=== PATIENT | female | born 1980 | race Caucasian/White ===

== ENCOUNTER 2018-03-08 14:11 | Emergency (ER) | payer OTHER ==
[~2018-03-08] VITALS: Ht 170.2 cm; Wt 81.6 kg
[~2018-03-08 14:11] MED LIST: LORA-434 PO; NAPR-683 PO; ONDA4TAB7 PO; OXYC1TAB15 PO; Oxycodone Hcl/Acetaminophen PO; TAMS0.4C97 PO
[2018-03-08 14:40] LABS: BILIRUBIN,URINE NEGATIVE (NEG); CLARITY,URINE CLEAR; COLOR,URINE YELLOW; NITRITE,URINE NEGATIVE (NEG); PH,URINE 5.5; PROTEIN,URINE NEGATIVE (NEG-TRACE); UROBILINOGEN,URINE 0.2 mg/dL (0.2 mg/dL)
[2018-03-08 14:46] LABS: BARBITURATES NEG (NEG); BENZODIAZEPINES POS (NEG); CANNABINOIDS NEG (NEG); COCAINE NEG (NEG); METHADONE NEG (NEG); OPIATES NEG (NEG); PHENCYCLIDINE NEG (NEG)
[2018-03-08 14:47] LABS: BACTERIA,URINE FEW /HPF (0-FEW); RBC,URINE 0 /HPF (0-2); SQUAMOUS EPITHELIAL CELL,UR MOD /LPF
[2018-03-08 14:51] LABS: AMPHETAMINE/METHAMPHETAMINE NEG (NEG)
--- NOTE | 2018-03-08 15:13 | EKG ---
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
[2018-03-08] MEDS ORDERED: HYDROcodone/APAP 5/325MG 1 TAB TABLET PO ONE (15:15)
[2018-03-08] MEDS ORDERED: CYCLOBENZAPRINE 10 MG TABLET. PO ONE (15:15)
--- NOTE | 2018-03-08 15:27 | PHYS DOC ---
Past Medical History Past Medical History: Kidney Stone, Pancreatitis Past Surgical History: Appendectomy, Tubal ligation, Other Additional Past Surgical Histo: ACL surgery, kidney stones; right scapula Alcohol Use: Occasionally Drug Use: None Adult General Chief Complaint Chief Complaint: DIZZY/LIGHT HEADED HPI HPI Patient is a 37 year old female who presents with was in the shower today and became dizzy and felt a sharp. She states she did not lose consciousness. She states she now has head pain, back pain. Patient denies hitting her head. Review of Systems Review of Systems Constitutional: Denies fever or chills [] Eyes: Denies change in visual acuity, redness, or eye pain [] HENT: Denies nasal congestion or sore throat [] Respiratory: Denies cough or shortness of breath [] Cardiovascular: No additional information not addressed in HPI [] GI: Denies abdominal pain, nausea, vomiting, bloody stools or diarrhea [] : Denies dysuria or hematuria [] Musculoskeletal: Lumbar back pain or joint pain [] Integument: Denies rash or skin lesions [] Neurologic: headache, eyes focal weakness or sensory changes [] All other systems were reviewed and found to be within normal limits, except as documented in this note. Current Medications Current Medications Current Medications Medications (Trade) Dose Ordered Sig/Sindi Start Time Stop Time Status Last Admin Dose Admin Acetaminophen/ Hydrocodone Bitart (Lortab 5/325) 1 tab 1X ONCE 03/08/18 15:15 03/08/18 15:16 DC 03/08/18 15:35 1 TAB Cyclobenzaprine HCl (Flexeril) 10 mg 1X ONCE 03/08/18 15:15 03/08/18 15:16 DC 03/08/18 15:35 10 MG Allergies Allergies Allergies Coded Allergies Type Severity Reaction Last Updated Verified No Known Drug Allergies 04/17/13 No Physical Exam Physical Exam Constitutional: Well developed, well nourished, no acute distress, non-toxic appearance. [] HENT: Normocephalic, atraumatic, bilateral external ears normal, oropharynx moist, no oral exudates, nose normal. [] Eyes: PERRLA, EOMI, conjunctiva normal, no discharge. [] Neck: Normal range of motion, no tenderness, supple, no stridor. [] Cardiovascular:Heart rate regular rhythm, no murmur [] Lungs & Thorax: Bilateral breath sounds clear to auscultation [] Abdomen: Bowel sounds normal, soft, no tenderness, no masses, no pulsatile masses. [] Skin: Warm, dry, no erythema, no rash. [] Back: Lumbar tenderness, no CVA tenderness. [] Extremities: No tenderness, no cyanosis, no clubbing, ROM intact, no edema. [] Neurologic: Alert and oriented X 3, normal motor function, normal sensory function, no focal deficits noted. [] Psychologic: Affect normal, judgement normal, mood normal. [] Current Patient Data Vital Signs Vital Signs Date Time Temp Pulse Resp B/P (MAP) Pulse Ox O2 Delivery O2 Flow Rate FiO2 03/08/18 15:36 77 16 99 03/08/18 14:31 97.0 157/84 (108) Room Air 97.0 Lab Values Laboratory Tests Test 03/08/18 14:10 03/08/18 14:30 03/08/18 14:31 Urine Collection Type Unknown Urine Color Yellow Urine Clarity Clear Urine pH 5.5 Urine Specific [place] >=1.030 Urine Protein Negative mg/dL (NEG-TRACE) Urine Glucose (UA) Negative mg/dL (NEG) Urine Ketones (Stick) Negative mg/dL (NEG) Urine Blood Negative (NEG) Urine Nitrite Negative (NEG) Urine Bilirubin Negative (NEG) Urine Urobilinogen Dipstick 0.2 mg/dL (0.2 mg/dL) Urine Leukocyte Esterase Negative (NEG) Urine RBC 0 /HPF (0-2) Urine WBC 5-10 /HPF (0-4) Urine Squamous Epithelial Cells Mod /LPF Urine Bacteria Few /HPF (0-FEW) Urine Mucus Marked /LPF Urine Opiates Screen Neg (NEG) Urine Methadone Screen Neg (NEG) Urine Barbiturates Neg (NEG) Urine Phencyclidine Screen Neg (NEG) Urine Amphetamine/Methamphetamine Neg (NEG) Urine Benzodiazepines Screen Pos (NEG) Urine Cocaine Screen Neg (NEG) Urine Cannabinoids Screen Neg (NEG) Urine Ethyl Alcohol Neg (NEG) White Blood Count 4.9 x10^3/uL (4.0-11.0) Red Blood Count 5.02 x10^6/uL (3.50-5.40) Hemoglobin 14.6 g/dL (12.0-15.5) Hematocrit 42.7 % (36.0-47.0) Mean Corpuscular Volume 85 fL (79-100) Mean Corpuscular Hemoglobin 29 pg (25-35) Mean Corpuscular Hemoglobin Concent 34 g/dL (31-37) Red Cell Distribution Width 18.3 % (11.5-14.5) H Platelet Count 313 x10^3/uL (140-400) Neutrophils (%) (Auto) 49 % (31-73) Lymphocytes (%) (Auto) 36 % (24-48) Monocytes (%) (Auto) 10 % (0-9) H Eosinophils (%) (Auto) 4 % (0-3) H Basophils (%) (Auto) 1 % (0-3) Neutrophils # (Auto) 2.4 x10^3uL (1.8-7.7) Lymphocytes # (Auto) 1.8 x10^3/uL (1.0-4.8) Monocytes # (Auto) 0.5 x10^3/uL (0.0-1.1) Eosinophils # (Auto) 0.2 x10^3/uL (0.0-0.7) Basophils # (Auto) 0.0 x10^3/uL (0.0-0.2) Sodium Level 141 mmol/L (136-145) Potassium Level 3.7 mmol/L (3.5-5.1) Chloride Level 103 mmol/L (98-107) Carbon Dioxide Level 28 mmol/L (21-32) Anion Gap 10 (6-14) Blood Urea Nitrogen 18 mg/dL (7-20) Creatinine 0.8 mg/dL (0.6-1.0) Estimated GFR (Cockcroft-Gault) 79.9 BUN/Creatinine Ratio 23 (6-20) H Glucose Level 105 mg/dL (70-99) H Calcium Level 9.9 mg/dL (8.5-10.1) Total Bilirubin 0.2 mg/dL (0.2-1.0) Aspartate Amino Transferase (AST) 19 U/L (15-37) Alanine Aminotransferase (ALT) 39 U/L (14-59) Alkaline Phosphatase 93 U/L (46-116) Troponin I Quantitative < 0.017 ng/mL (0.000-0.055) Total Protein 8.9 g/dL (6.4-8.2) H Albumin 4.2 g/dL (3.4-5.0) Albumin/Globulin Ratio 0.9 (1.0-1.7) L Ethyl Alcohol Level < 10 mg/dL (0-10) POC Urine HCG, Qualitative Hcg negative (Negative) Laboratory Tests 03/08/18 14:30 Laboratory Tests 03/08/18 14:30 EKG EKG Sinus rhythm and no STEMI Interpretation Time: [address] Arellano Radiology/Procedures Radiology/Procedures [] Impressions: [facility] [address] [place] [address] IMAGING REPORT Signed PATIENT: PEGGY GASTON ACCOUNT: [id number] : 1980 LOCATION: ER AGE: 37 SEX: F EXAM STATUS: REG ER ORD. PHYSICIAN: CAMMY ARNDT APRN REASON: fall PROCEDURE: CT HEAD AND CERVICAL SPINE WO PQRS Compliance statement: One or more of the following individualized dose reduction techniques were utilized for this examination: 1. Automated exposure control. 2. Adjustment of the mA and/or kV according to patient size. 3. Use of iterative reconstruction technique. Indication:FALL IN SHOWER PAIN TO HEAD AND BACK PREV HEAD SENT NO CONTRAST TECHNIQUE: CT head without IV contrast COMPARISON:04/17/2013 FINDINGS: No pathologic extra-axial or intra-axial fluid collection. The ventricles and basal cisterns are within normal limits. No acute intracranial bleed. No focal loss of riddle-white differentiation. No large scalp hematoma. Visualized orbits within normal limits. No acute calvarial fracture. IMPRESSION: 1. No acute intracranial bleed or calvarial fracture. Indication:FALL IN SHOWER PAIN TO HEAD AND BACK PREV HEAD SENT NO CONTRAST TECHNIQUE: CT of the cervical spine without IV contrast with multiplanar reformats. COMPARISON:None FINDINGS: The cervical spine is in normal anatomic alignment. Atlantoaxial joint or is preserved. No compression deformity. Facet joints are in normal anatomic alignment. No acute fractures. Noncontrast appearance of the neck soft tissue is within normal limits. IMPRESSION: No acute cervical spine fracture. Electronically signed by: Jourdan Borden DO (03/08/2018 3:22 PM) [id number] DICTATED and SIGNED BY: JOURDAN BORDEN DO DATE: 03/08/18 1518 [facility] [address] [place] [address] IMAGING REPORT Signed PATIENT: PEGGY GASTON ACCOUNT: [id number] : 1980 LOCATION: ER AGE: 37 SEX: F EXAM STATUS: REG ER ORD. PHYSICIAN: CAMMY ARNDT APRN REASON: fall PROCEDURE: CT THORACIC SPINE WO CONTRAST CT study of the thoracic spine without contrast Clinical indications: Fall in shower with back pain and neck pain. TECHNIQUE: Noncontrast helical CT scanning of the thoracic spine was performed. Multiplanar 2-D reconstructions were generated. PQRS compliance Statement One or more of the following individualized dose reduction techniques were utilized for this study: 1. Automated exposure control 2. Adjustment of the mA and/or kV according to patient size 3. Use of iterative reconstruction technique FINDINGS: No compression fracture or radiolucent fracture line is evident. No discitis or osteolytic process is. No prominent focal disc protrusion is evident on this nonmyelographic study and no tight spinal canal stenosis is seen. IMPRESSION: No acute fracture is evident. Electronically signed by: Lisa Christianson MD (03/08/2018 3:45 PM) [id number] DICTATED and SIGNED BY: LISA CHRISTIANSON MD DATE: 03/08/18 1538 [facility] [address] [place] [address] IMAGING REPORT Signed PATIENT: PEGGY GASTON ACCOUNT: [id number] : 1980 LOCATION: ER AGE: 37 SEX: F EXAM STATUS: REG ER ORD. PHYSICIAN: CAMMY ARNDT APRN REASON: fall PROCEDURE: CT LUMBAR SPINE WO CONTRAST CT LUMBAR SPINE WO CONTRAST Indication: FALL IN THE SHOWER, BACK PAIN Technique: Noncontrast CT imaging was performed of the lumbar spine, multiplanar reconstruction images submitted. One or more of the following individualized dose reduction techniques were utilized for this examination: 1. Automated exposure control 2. Adjustment of the mA and/or kV according to patient size 3. Use of iterative reconstruction technique. Comparison: None Findings: Lumbar vertebral body stature is maintained. There is negligible anterior spondylolisthesis L4-5. Intervertebral disc spaces are mostly maintained, mild degenerative disc disease greater posteriorly at L5-S1. No acute lumbar spine fracture is identified. There is multilevel lumbar facet degenerative change. There is a partially fat containing mass with associated cystic component of the right adnexal region about 6.6 cm AP by 3.9 cm transverse which is not fully included. There are small bilateral renal calculi, ureters not fully included. IMPRESSION: 1. No acute lumbar spine fracture is identified. 2. There is again partially fat containing mass of the right adnexal region which is not fully included, probable dermoid/teratoma as seen on previous 2017 CT abdomen pelvis exam. 3. There are small bilateral renal calculi. Ureters are not fully included. Electronically signed by: Toshia Wheat MD (03/08/2018 3:41 PM) [facility] DICTATED and SIGNED BY: TOSHIA WHEAT MD DATE: 03/08/18 1535 Course & Med Decision Making Course & Med Decision Making Patient is a 37 year old female who presents with was in the shower today and became dizzy and felt a sharp. She states she did not lose consciousness. She states she now has head pain, back pain. Patient denies hitting her head. Alert and oriented. Speaks in full clear sentences. Moves all extremities equally. Patient has no focal weaknesses. Denies any chest pain, shortness of air, dizziness, visual changes, numbness or tingling, nausea, vomiting. Abdomen is soft and non-tender, and without abrasions, bruising, masses. PERRLA. Neurologically intact. Range of motion intact in neck. There is tenderness with palpation to thoracic and lumbar spine. There is no bruising or deformities or abrasions seen on patient's back, torso, extremities. Patient head and face is without deformities, lacerations, abrasions, tenderness, masses, bruises. States throughout the last couple days she has had a couple episodes of dizziness and doesn't matter what she is doing at the whether she sitting, walking or standing. CT scans show no acute findings. EKG normal, blood work unremarkable. Patient is disscharged home and to follow up with primary care physician. Patient should return for increased dizziness, syncope, fever, vomiting, chest pain or soa. Dragon Disclaimer Dragon Disclaimer This electronic medical record was generated, in whole or in part, using a voice recognition dictation system. Departure Departure Impression: Primary Impression: Fall Additional Impression: Musculoskeletal back pain Disposition: HOME, SELF-CARE Condition: STABLE Referrals: NO PCP (PCP) Patient Instructions: Back Pain, Adult, Dizziness, Fall Prevention and Home Safety, Musculoskeletal Pain Additional Instructions: Call your primary care physician tomorrow for follow up care. Take medications as prescribed. Scripts Orphenadrine Citrate (ORPHENADRINE CITRATE) 100 Mg Tablet.er 1 TAB PO BID, #10 TAB Prov: CAMMY ARNDT APRN 03/08/18 Hydrocodone/Apap 5-325 (NORCO 5-325 TABLET) 1 Each Tablet 1 TAB PO PRN Q6HRS PRN for PAIN, #6 TAB 0 Refills Prov: CAMMY ARNDT APRN 03/08/18 Problem Qualifiers Primary Impression: Fall Encounter type: initial encounter Qualified Codes: W19.XXXA - Unspecified fall, initial encounter CAMMY ARNDT DRAFTER [employer] Mar 08, 2018 15:27
[2018-03-08 15:44] LABS: BASO % 1 % (0-3); EOS # 0.2 x10^3/uL (0.0-0.7); EOS % 4 % (0-3); HEMATOCRIT 42.7 % (36.0-47.0); HEMOGLOBIN 14.6 g/dL (12.0-15.5); LYMPH # 1.8 x10^3/uL (1.0-4.8); LYMPH % 36 % (24-48); MEAN CORPUSCULAR HEMOGLOBIN 29 pg (25-35); MEAN CORPUSCULAR HGB CONC 34 g/dL (31-37); MEAN CORPUSCULAR VOLUME 85 fL (79-100); MONO # 0.5 x10^3/uL (0.0-1.1); MONO % 10 % (0-9); NEUT # 2.4 x10^3uL (1.8-7.7); NEUT % 49 % (31-73); PLATELET COUNT 313 x10^3/uL (140-400); RED BLOOD COUNT 5.02 x10^6/uL (3.50-5.40); RED CELL DISTRIBUTION WIDTH 18.3 % (11.5-14.5); WHITE BLOOD COUNT 4.9 x10^3/uL (4.0-11.0)
--- NOTE | 2018-03-08 15:46 | RAD ---
CT LUMBAR SPINE WO CONTRAST Indication: FALL IN THE SHOWER, BACK PAIN Technique: Noncontrast CT imaging was performed of the lumbar spine, multiplanar reconstruction images submitted. One or more of the following individualized dose reduction techniques were utilized for this examination: 1. Automated exposure control 2. Adjustment of the mA and/or kV according to patient size 3. Use of iterative reconstruction technique. Comparison: None Findings: Lumbar vertebral body stature is maintained. There is negligible anterior spondylolisthesis L4-5. Intervertebral disc spaces are mostly maintained, mild degenerative disc disease greater posteriorly at L5-S1. No acute lumbar spine fracture is identified. There is multilevel lumbar facet degenerative change. There is a partially fat containing mass with associated cystic component of the right adnexal region about 6.6 cm AP by 3.9 cm transverse which is not fully included. There are small bilateral renal calculi, ureters not fully included. IMPRESSION: 1. No acute lumbar spine fracture is identified. 2. There is again partially fat containing mass of the right adnexal region which is not fully included, probable dermoid/teratoma as seen on previous 2017 CT abdomen pelvis exam. 3. There are small bilateral renal calculi. Ureters are not fully included. Electronically signed by: Julio Lockhart MD (03/08/2018 3:41 PM) [facility]
--- NOTE | 2018-03-08 15:50 | RAD ---
CT study of the thoracic spine without contrast Clinical indications: Fall in shower with back pain and neck pain. TECHNIQUE: Noncontrast helical CT scanning of the thoracic spine was performed. Multiplanar 2-D reconstructions were generated. PQRS compliance Statement One or more of the following individualized dose reduction techniques were utilized for this study: 1. Automated exposure control 2. Adjustment of the mA and/or kV according to patient size 3. Use of iterative reconstruction technique FINDINGS: No compression fracture or radiolucent fracture line is evident. No discitis or osteolytic process is. No prominent focal disc protrusion is evident on this nonmyelographic study and no tight spinal canal stenosis is seen. IMPRESSION: No acute fracture is evident. Electronically signed by: Santana Christianson MD (03/08/2018 3:45 PM) [facility]
[2018-03-08 15:53] LABS: CALCIUM 9.9 mg/dL (8.5-10.1); CREATININE 0.8 mg/dL (0.6-1.0); GFR 79.9; POTASSIUM 3.7 mmol/L (3.5-5.1)
[2018-03-08 15:59] LABS: ALBUMIN 4.2 g/dL (3.4-5.0); ALBUMIN/GLOBULIN RATIO 0.9 (1.0-1.7); TOTAL BILIRUBIN 0.2 mg/dL (0.2-1.0); TOTAL PROTEIN 8.9 g/dL (6.4-8.2)
[2018-03-08 16:01] VITALS: BP 119/86
[2018-03-08] MEDS ORDERED: HYDR-3164 PO (16:15)
[2018-03-08] MEDS ORDERED: ORPH100T PO (16:15)
== END 2018-03-08 16:25 | disposition home or self-care (01) ==
LOC: ER 14:11
DX: M54.5 Low back pain (principal); R51 Headache; R42 Dizziness and giddiness; N20.0 Calculus of kidney; M43.16 Spondylolisthesis, lumbar region; M51.37 Other intervertebral disc degeneration, lumbosacral region; Z87.440 Personal history of urinary (tract) infections; Z90.89 Acquired absence of other organs; Z98.51 Tubal ligation status; W18.30XA Fall on same level, unspecified, initial encounter; Y93.E1 Activity, personal bathing and showering; Y92.89 Other specified places as the place of occurrence of the external cause; Y99.8 Other external cause status
CPT/HCPCS: 36415; 70450; 72125; 72128; 72131; 80053; 80307; 81001; 81025; 84484; 85025; 87086; 93005; 99284; G0480

== ENCOUNTER 2018-04-24 20:42 | Emergency (ER) | payer OTHER ==
[~2018-04-24] VITALS: Ht 167.6 cm; Wt 88.5 kg
[~2018-04-24 20:42] MED LIST changes: +HYDR-3164 PO; +ORPH100T PO
[2018-04-24 22:17] LABS: BILIRUBIN,URINE NEGATIVE (NEG); CLARITY,URINE CLEAR; COLOR,URINE YELLOW; NITRITE,URINE NEGATIVE (NEG); PROTEIN,URINE NEGATIVE (NEG-TRACE); UROBILINOGEN,URINE 0.2 mg/dL (0.2 mg/dL)
[2018-04-24 22:24] LABS: BASO # 0.1 x10^3/uL (0.0-0.2); BASO % 1 % (0-3); EOS # 0.4 x10^3/uL (0.0-0.7); EOS % 7 % (0-3); HEMATOCRIT 38.3 % (36.0-47.0); HEMOGLOBIN 12.8 g/dL (12.0-15.5); LYMPH # 2.1 x10^3/uL (1.0-4.8); LYMPH % 35 % (24-48); MEAN CORPUSCULAR HEMOGLOBIN 29 pg (25-35); MEAN CORPUSCULAR HGB CONC 33 g/dL (31-37); MEAN CORPUSCULAR VOLUME 86 fL (79-100); MONO # 0.4 x10^3/uL (0.0-1.1); MONO % 7 % (0-9); NEUT # 2.9 x10^3uL (1.8-7.7); NEUT % 50 % (31-73); PLATELET COUNT 270 x10^3/uL (140-400); RED BLOOD COUNT 4.47 x10^6/uL (3.50-5.40); RED CELL DISTRIBUTION WIDTH 17.7 % (11.5-14.5); WHITE BLOOD COUNT 5.9 x10^3/uL (4.0-11.0)
[2018-04-24 22:26] LABS: BACTERIA,URINE FEW /HPF (0-FEW); RBC,URINE 20-40 /HPF (0-2); SQUAMOUS EPITHELIAL CELL,UR MOD /LPF
[2018-04-24 22:31] LABS: CREATININE 0.7 mg/dL (0.6-1.0); GFR 93.2
[2018-04-24 22:37] LABS: ALBUMIN 3.5 g/dL (3.4-5.0); ALBUMIN/GLOBULIN RATIO 0.9 (1.0-1.7); TOTAL BILIRUBIN 0.1 mg/dL (0.2-1.0); TOTAL PROTEIN 7.5 g/dL (6.4-8.2)
--- NOTE | 2018-04-24 22:42 | PHYS DOC ---
Past Medical History Past Medical History: Anxiety, Depression, Kidney Stone, Pancreatitis Past Surgical History: Appendectomy, Tubal ligation, Other Additional Past Surgical Histo: ACL surgery, kidney stones; right scapula Alcohol Use: Occasionally Drug Use: None Adult General Chief Complaint Chief Complaint: POST-OP PROBLEM HPI HPI Patient is a 37 year old resents with a chief complaint of abdominal pain. Patient is 5 weeks postoperative intra-abdominal surgery secondary to foreign body. Patient surgery was performed at the [facility]. Patient states she was last seen by general surgeon 3 weeks ago for a follow-up. Patient states has a surgery she's had abdominal pain on and off. Today's abdominal pain is right sided upper with radiation to her right lower quadrant. She describes it as a squeezing sensation. Patient also states she has some left- sided abdominal discomfort chief states feels like her previous bouts of pancreatitis. Patient states she has associated nausea but has not vomited. Review of Systems Review of Systems Constitutional: Denies fever or chills [] Eyes: Denies change in visual acuity, redness, or eye pain [] HENT: Denies nasal congestion or sore throat [] Respiratory: Denies cough or shortness of breath [] Cardiovascular: No additional information not addressed in HPI [] GI: Denies abdominal pain, nausea, vomiting, bloody stools or diarrhea [] : Denies dysuria or hematuria [] Musculoskeletal: Denies back pain or joint pain [] Integument: Denies rash or skin lesions [] Neurologic: Denies headache, focal weakness or sensory changes [] Endocrine: Denies polyuria or polydipsia [] All other systems were reviewed and found to be within normal limits, except as documented in this note. Current Medications Current Medications Current Medications Medications (Trade) Dose Ordered Sig/Sindi Start Time Stop Time Status Last Admin Dose Admin Acetaminophen/ Hydrocodone Bitart (Lortab 5/325) 1 tab STK-MED ONCE 04/24/18 23:23 04/24/18 23:24 DC Allergies Allergies Allergies Coded Allergies Type Severity Reaction Last Updated Verified No Known Drug Allergies 04/17/13 No Physical Exam Physical Exam Constitutional: Well developed, well nourished, no acute distress, non-toxic appearance. [] HENT: Normocephalic, atraumatic, bilateral external ears normal, oropharynx moist, no oral exudates, nose normal. [] Eyes: PERRLA, EOMI, conjunctiva normal, no discharge. [] Neck: Normal range of motion, no tenderness, supple, no stridor. [] Cardiovascular:Heart rate regular rhythm, no murmur [] Lungs & Thorax: Bilateral breath sounds clear to auscultation [] Abdomen: Bowel sounds normal, soft, no tenderness, no masses, no pulsatile masses. [] Skin: Warm, dry, no erythema, no rash. [] Back: No tenderness, no CVA tenderness. [] Extremities: No tenderness, no cyanosis, no clubbing, ROM intact, no edema. [] Neurologic: Alert and oriented X 3, normal motor function, normal sensory function, no focal deficits noted. [] Psychologic: Affect normal, judgement normal, mood normal. [] Current Patient Data Vital Signs Vital Signs Date Time Temp Pulse Resp B/P (MAP) Pulse Ox O2 Delivery O2 Flow Rate FiO2 04/24/18 23:31 80 18 96/57 (70) 95 Room Air 04/24/18 20:45 98.1 98.1 Lab Values Laboratory Tests Test 04/24/18 21:10 04/24/18 21:17 04/24/18 22:15 04/24/18 22:30 Urine Collection Type Unknown Urine Color Yellow Urine Clarity Clear Urine pH 6.0 Urine Specific [place] 1.025 Urine Protein Negative mg/dL (NEG-TRACE) Urine Glucose (UA) Negative mg/dL (NEG) Urine Ketones (Stick) Negative mg/dL (NEG) Urine Blood Large (NEG) Urine Nitrite Negative (NEG) Urine Bilirubin Negative (NEG) Urine Urobilinogen Dipstick 0.2 mg/dL (0.2 mg/dL) Urine Leukocyte Esterase Small (NEG) Urine RBC 20-40 /HPF (0-2) Urine WBC 5-10 /HPF (0-4) Urine Squamous Epithelial Cells Mod /LPF Urine Bacteria Few /HPF (0-FEW) POC Urine HCG, Qualitative Hcg negative (Negative) White Blood Count 5.9 x10^3/uL (4.0-11.0) Red Blood Count 4.47 x10^6/uL (3.50-5.40) Hemoglobin 12.8 g/dL (12.0-15.5) Hematocrit 38.3 % (36.0-47.0) Mean Corpuscular Volume 86 fL (79-100) Mean Corpuscular Hemoglobin 29 pg (25-35) Mean Corpuscular Hemoglobin Concent 33 g/dL (31-37) Red Cell Distribution Width 17.7 % (11.5-14.5) H Platelet Count 270 x10^3/uL (140-400) Neutrophils (%) (Auto) 50 % (31-73) Lymphocytes (%) (Auto) 35 % (24-48) Monocytes (%) (Auto) 7 % (0-9) Eosinophils (%) (Auto) 7 % (0-3) H Basophils (%) (Auto) 1 % (0-3) Neutrophils # (Auto) 2.9 x10^3uL (1.8-7.7) Lymphocytes # (Auto) 2.1 x10^3/uL (1.0-4.8) Monocytes # (Auto) 0.4 x10^3/uL (0.0-1.1) Eosinophils # (Auto) 0.4 x10^3/uL (0.0-0.7) Basophils # (Auto) 0.1 x10^3/uL (0.0-0.2) Sodium Level 142 mmol/L (136-145) Potassium Level 4.0 mmol/L (3.5-5.1) Chloride Level 105 mmol/L (98-107) Carbon Dioxide Level 28 mmol/L (21-32) Anion Gap 9 (6-14) Blood Urea Nitrogen 20 mg/dL (7-20) Creatinine 0.7 mg/dL (0.6-1.0) Estimated GFR (Cockcroft-Gault) 93.2 BUN/Creatinine Ratio 29 (6-20) H Glucose Level 88 mg/dL (70-99) Calcium Level 9.0 mg/dL (8.5-10.1) Total Bilirubin 0.1 mg/dL (0.2-1.0) L Aspartate Amino Transferase (AST) 18 U/L (15-37) Alanine Aminotransferase (ALT) 45 U/L (14-59) Alkaline Phosphatase 83 U/L (46-116) Total Protein 7.5 g/dL (6.4-8.2) Albumin 3.5 g/dL (3.4-5.0) Albumin/Globulin Ratio 0.9 (1.0-1.7) L Lipase 97 U/L (73-393) Urine Opiates Screen Neg (NEG) Urine Methadone Screen Neg (NEG) Urine Barbiturates Neg (NEG) Urine Phencyclidine Screen Neg (NEG) Urine Amphetamine/Methamphetamine Neg (NEG) Urine Benzodiazepines Screen Pos (NEG) Urine Cocaine Screen Neg (NEG) Urine Cannabinoids Screen Neg (NEG) Urine Ethyl Alcohol Neg (NEG) Laboratory Tests 04/24/18 22:15 Laboratory Tests 04/24/18 22:15 EKG EKG [] Radiology/Procedures Radiology/Procedures [] Course & Med Decision Making Course & Med Decision Making Pertinent Labs and Imaging studies reviewed. (See chart for details) []Patient was evaluated for chief complaint. Workup consisted of laboratory analysis and radiologic imaging. Results reviewed and discussed with patient. No acute abnormalities on labs or x-ray findings. Patient will be discharged home with prescription medications with instruction to follow up with her primary care physician. Dragon Disclaimer Dragon Disclaimer This electronic medical record was generated, in whole or in part, using a voice recognition dictation system. Departure Departure Referrals: NO PCP (PCP) LUCIAN HAWKINS DO Apr 24, 2018 22:42
[2018-04-24 23:03] LABS: BARBITURATES NEG (NEG); BENZODIAZEPINES POS (NEG); CANNABINOIDS NEG (NEG); COCAINE NEG (NEG); METHADONE NEG (NEG); OPIATES NEG (NEG); PHENCYCLIDINE NEG (NEG)
[2018-04-24 23:06] LABS: AMPHETAMINE/METHAMPHETAMINE NEG (NEG)
[2018-04-24] MEDS ORDERED: HYDROcodone/APAP 5/325MG 1 TAB TABLET ONE (23:23)
[2018-04-24] MEDS ORDERED: HYDROcodone/APAP 5/325MG 1 TAB TABLET PO ONE (23:30)
[2018-04-25 00:41] VITALS: BP 102/67
[2018-04-25] MEDS ORDERED: OXYC1TAB15 PO (00:44)
--- NOTE | 2018-04-25 00:56 | RAD ---
Indication:abd pain; post-op TECHNIQUE:Portable AP chest X-ray COMPARISON:None FINDINGS: No abnormally dilated bowel loops. Moderate diffuse colonic stool burden. Visualized bones are within normal limits. IMPRESSION: No acute radiographic findings. Electronically signed by: Jourdan Borden DO (04/25/2018 12:53 AM) [facility]
== END 2018-04-25 00:48 | disposition home or self-care (01) ==
LOC: ER 20:42
DX: G89.18 Other acute postprocedural pain (principal); R10.11 Right upper quadrant pain; R10.31 Right lower quadrant pain; Z90.89 Acquired absence of other organs; Z87.442 Personal history of urinary calculi; Z98.51 Tubal ligation status
CPT/HCPCS: 36415; 74018; 80053; 80307; 81001; 81025; 83690; 85025; 87086; 99284-25

== ENCOUNTER 2018-08-31 23:42 | Emergency (ER) | payer MEDICAID, OTHER ==
[~2018-08-31] VITALS: Ht 170.2 cm; Wt 99.8 kg
[2018-09-01 00:15] VITALS: BP 109/82
[2018-09-01 00:33] LABS: BILIRUBIN,URINE NEGATIVE (NEG); CLARITY,URINE CLEAR; COLOR,URINE YELLOW; NITRITE,URINE NEGATIVE (NEG); PH,URINE 6.5; PROTEIN,URINE NEGATIVE (NEG-TRACE); UROBILINOGEN,URINE 0.2 mg/dL (0.2 mg/dL)
[2018-09-01 00:38] LABS: BARBITURATES NEG (NEG); BENZODIAZEPINES POS (NEG); CANNABINOIDS NEG (NEG); COCAINE NEG (NEG); METHADONE NEG (NEG); OPIATES NEG (NEG); PHENCYCLIDINE NEG (NEG)
[2018-09-01 00:39] LABS: AMPHETAMINE/METHAMPHETAMINE NEG (NEG)
[2018-09-01 00:44] LABS: BACTERIA,URINE MODERATE /HPF (0-FEW); RBC,URINE 0 /HPF (0-2); SQUAMOUS EPITHELIAL CELL,UR MOD /LPF
[2018-09-01 00:53] LABS: BASO % 1 % (0-3); EOS # 0.3 x10^3/uL (0.0-0.7); EOS % 5 % (0-3); HEMATOCRIT 38.3 % (36.0-47.0); HEMOGLOBIN 13.1 g/dL (12.0-15.5); LYMPH # 2.1 x10^3/uL (1.0-4.8); LYMPH % 35 % (24-48); MEAN CORPUSCULAR HEMOGLOBIN 28 pg (25-35); MEAN CORPUSCULAR HGB CONC 34 g/dL (31-37); MEAN CORPUSCULAR VOLUME 83 fL (79-100); MONO # 0.6 x10^3/uL (0.0-1.1); MONO % 10 % (0-9); NEUT % 49 % (31-73); PLATELET COUNT 321 x10^3/uL (140-400); RED BLOOD COUNT 4.62 x10^6/uL (3.50-5.40); RED CELL DISTRIBUTION WIDTH 17.7 % (11.5-14.5); WHITE BLOOD COUNT 6.1 x10^3/uL (4.0-11.0)
[2018-09-01 01:03] LABS: CALCIUM 9.5 mg/dL (8.5-10.1); CREATININE 0.8 mg/dL (0.6-1.0); GFR 79.9
[2018-09-01 01:09] LABS: ALBUMIN 3.6 g/dL (3.4-5.0); ALBUMIN/GLOBULIN RATIO 0.8 (1.0-1.7); TOTAL BILIRUBIN 0.1 mg/dL (0.2-1.0); TOTAL PROTEIN 8.2 g/dL (6.4-8.2)
--- NOTE | 2018-09-01 01:25 | PHYS DOC ---
Past Medical History Past Medical History: Anxiety, Depression, Kidney Stone, Pancreatitis Past Surgical History: Appendectomy, Cholecystectomy, Tubal ligation Additional Past Surgical Histo: ACL surgery, kidney stones; right scapula Alcohol Use: None Drug Use: None Adult General Chief Complaint Chief Complaint: ABDOMINAL PAIN HPI HPI Patient is a 37 year old female presented ER today for evaluation of bilateral flank pain started about 4 hours ago. Patient denies any nausea vomiting. Patient has history of kidney stone, history of pancreatitis. Patient says she does not feel like her previous pancreatitis. She denies any fever, no chest pain, no trouble breathing. Review of Systems Review of Systems Constitutional: Denies fever or chills [] Eyes: Denies change in visual acuity, redness, or eye pain [] HENT: Denies nasal congestion or sore throat [] Respiratory: Denies cough or shortness of breath [] Cardiovascular: No additional information not addressed in HPI [] GI: Positive for abdominal pain, NO nausea, vomiting, bloody stools or diarrhea [] : Denies dysuria or hematuria [] Musculoskeletal: Denies back pain or joint pain [] Integument: Denies rash or skin lesions [] Neurologic: Denies headache, focal weakness or sensory changes [] Endocrine: Denies polyuria or polydipsia [] All other systems were reviewed and found to be within normal limits, except as documented in this note. Current Medications Current Medications Current Medications Medications (Trade) Dose Ordered Sig/Sindi Start Time Stop Time Status Last Admin Dose Admin Fentanyl Citrate (Fentanyl 2ml Vial) 50 mcg 1X ONCE 09/01/18 03:00 09/01/18 03:01 DC 09/01/18 03:02 50 MCG Ketorolac Tromethamine (Toradol 30mg Vial) 30 mg 1X ONCE 09/01/18 02:00 09/01/18 02:01 DC 09/01/18 02:02 30 MG Metoclopramide HCl (Reglan Vial) 10 mg 1X ONCE 09/01/18 02:30 09/01/18 02:31 DC 09/01/18 02:07 10 MG Ondansetron HCl (Zofran) 8 mg 1X ONCE 09/01/18 02:30 09/01/18 02:31 DC Sodium Chloride 1,000 ml @ 1,000 mls/hr 1X ONCE 09/01/18 02:00 09/01/18 02:59 DC 09/01/18 02:00 1,000 MLS/HR Allergies Allergies Allergies Coded Allergies Type Severity Reaction Last Updated Verified No Known Drug Allergies 04/17/13 No Physical Exam Physical Exam Constitutional: Well developed, well nourished, no acute distress, non-toxic appearance. [] HENT: Normocephalic, atraumatic, bilateral external ears normal, oropharynx moist, no oral exudates, nose normal. [] Eyes: PERRLA, EOMI, conjunctiva normal, no discharge. [] Neck: Normal range of motion, no tenderness, supple, no stridor. [] Cardiovascular:Heart rate regular rhythm, no murmur [] Lungs & Thorax: Bilateral breath sounds clear to auscultation [] Abdomen: Bowel sounds normal, soft, There is tenderness in epigastric area, no masses, no pulsatile masses. [] Skin: Warm, dry, no erythema, no rash. [] Back: No tenderness, no CVA tenderness. [] Extremities: No tenderness, no cyanosis, no clubbing, ROM intact, no edema. [] Neurologic: Alert and oriented X 3, normal motor function, normal sensory function, no focal deficits noted. [] Psychologic: Affect normal, judgement normal, mood normal. [] Current Patient Data Vital Signs Vital Signs Date Time Temp Pulse Resp B/P (MAP) Pulse Ox O2 Delivery O2 Flow Rate FiO2 09/01/18 03:02 18 Room Air 09/01/18 00:15 98.7 106 109/82 (91) 96 98.7 Lab Values Laboratory Tests Test 09/01/18 00:01 09/01/18 00:20 09/01/18 00:23 09/01/18 00:45 Sodium Level 139 mmol/L (136-145) Potassium Level 4.0 mmol/L (3.5-5.1) Chloride Level 101 mmol/L (98-107) Carbon Dioxide Level 29 mmol/L (21-32) Anion Gap 9 (6-14) Blood Urea Nitrogen 20 mg/dL (7-20) Creatinine 0.8 mg/dL (0.6-1.0) Estimated GFR (Cockcroft-Gault) 79.9 BUN/Creatinine Ratio 25 (6-20) H Glucose Level 99 mg/dL (70-99) Calcium Level 9.5 mg/dL (8.5-10.1) Total Bilirubin 0.1 mg/dL (0.2-1.0) L Aspartate Amino Transferase (AST) 21 U/L (15-37) Alanine Aminotransferase (ALT) 40 U/L (14-59) Alkaline Phosphatase 140 U/L (46-116) H Total Protein 8.2 g/dL (6.4-8.2) Albumin 3.6 g/dL (3.4-5.0) Albumin/Globulin Ratio 0.8 (1.0-1.7) L Lipase 154 U/L (73-393) Urine Collection Type Unknown Urine Color Yellow Urine Clarity Clear Urine pH 6.5 Urine Specific [place] 1.025 Urine Protein Negative mg/dL (NEG-TRACE) Urine Glucose (UA) Negative mg/dL (NEG) Urine Ketones (Stick) Negative mg/dL (NEG) Urine Blood Negative (NEG) Urine Nitrite Negative (NEG) Urine Bilirubin Negative (NEG) Urine Urobilinogen Dipstick 0.2 mg/dL (0.2 mg/dL) Urine Leukocyte Esterase Trace (NEG) Urine RBC 0 /HPF (0-2) Urine WBC 1-4 /HPF (0-4) Urine Squamous Epithelial Cells Mod /LPF Urine Bacteria Moderate /HPF (0-FEW) Urine Opiates Screen Neg (NEG) Urine Methadone Screen Neg (NEG) Urine Barbiturates Neg (NEG) Urine Phencyclidine Screen Neg (NEG) Urine Amphetamine/Methamphetamine Neg (NEG) Urine Benzodiazepines Screen Pos (NEG) Urine Cocaine Screen Neg (NEG) Urine Cannabinoids Screen Neg (NEG) Urine Ethyl Alcohol Neg (NEG) POC Urine HCG, Qualitative Hcg negative (Negative) White Blood Count 6.1 x10^3/uL (4.0-11.0) Red Blood Count 4.62 x10^6/uL (3.50-5.40) Hemoglobin 13.1 g/dL (12.0-15.5) Hematocrit 38.3 % (36.0-47.0) Mean Corpuscular Volume 83 fL (79-100) Mean Corpuscular Hemoglobin 28 pg (25-35) Mean Corpuscular Hemoglobin Concent 34 g/dL (31-37) Red Cell Distribution Width 17.7 % (11.5-14.5) H Platelet Count 321 x10^3/uL (140-400) Neutrophils (%) (Auto) 49 % (31-73) Lymphocytes (%) (Auto) 35 % (24-48) Monocytes (%) (Auto) 10 % (0-9) H Eosinophils (%) (Auto) 5 % (0-3) H Basophils (%) (Auto) 1 % (0-3) Neutrophils # (Auto) 3.0 x10^3/uL (1.8-7.7) Lymphocytes # (Auto) 2.1 x10^3/uL (1.0-4.8) Monocytes # (Auto) 0.6 x10^3/uL (0.0-1.1) Eosinophils # (Auto) 0.3 x10^3/uL (0.0-0.7) Basophils # (Auto) 0.0 x10^3/uL (0.0-0.2) Ethyl Alcohol Level < 10 mg/dL (0-10) Laboratory Tests 09/01/18 00:45 Laboratory Tests 09/01/18 00:01 EKG EKG [] Radiology/Procedures Radiology/Procedures [][facility] [address] [place] [address] IMAGING REPORT Signed PATIENT: PEGGY GASTON ACCOUNT: [id number] : 1980 LOCATION: ER AGE: 37 SEX: F EXAM STATUS: REG ER ORD. PHYSICIAN: CASSI EAGLE DO REASON: flank pain PROCEDURE: CT ABDOMEN PELVIS WO CONTRAST CT scan of the abdomen and pelvis without contrast 09/01/2018 CLINICAL HISTORY: Right flank pain. TECHNIQUE: Unenhanced, contiguous, 2 mm axial sections were obtained through the abdomen and pelvis. One or more of the following individualized dose reduction techniques were utilized for this study: 1. Automated exposure control. 2. Adjustment of the mA and/or kV according to patient size. 3. Use of iterative reconstruction technique. FINDINGS: Comparison study is dated 07/19/2016. Images through the lung bases are within normal limits. The liver, spleen, pancreas, and adrenal glands are within normal limits. Nonobstructing renal calculi are seen bilaterally which measure 2 to 3 mm in size. No ureteral calculus is seen. There is no evidence of obstruction of either collecting system. The abdominal aorta tapers normally. Surgical clips are seen within the gallbladder fossa consistent with a cholecystectomy. No free fluid or free air is within the abdomen. There is no evidence of bowel obstruction. The patient is post appendectomy. Images through the pelvis demonstrate the urinary bladder distended with urine. A 7.5 cm adnexal mass which contains fat and areas of calcification is again seen consistent with a dermoid/teratoma. It is unchanged. No free fluid is seen. Minimal S-shaped curvature of the thoracolumbar spine is noted. Degenerative changes are seen involving the lower thoracic and throughout the lumbar spine along with both hips. IMPRESSION: No acute abnormality is seen. Electronically signed by: Devin Serna MD (09/01/2018 2:08 AM) [id number] DICTATED and SIGNED BY: DEVIN SERNA MD DATE: 09/01/18 0208 Course & Med Decision Making Course & Med Decision Making Pertinent Labs and Imaging studies reviewed. (See chart for details) [] Dragon Disclaimer Dragon Disclaimer This electronic medical record was generated, in whole or in part, using a voice recognition dictation system. Departure Departure Impression: Primary Impression: Flank pain Disposition: 01 HOME, SELF-CARE Condition: STABLE Referrals: NO PCP (PCP) follow up with your doctor next week for reevaluation Patient Instructions: Flank Pain CASSI EAGLE DO Sep 01, 2018 01:25
[2018-09-01] MEDS ORDERED: IV NORMAL SALINE 1000ML BAG 1,000 ML IV ONE (02:00)
[2018-09-01] MEDS ORDERED: KETOROLAC 30 MG/ML VIAL. IV ONE (02:00)
--- NOTE | 2018-09-01 02:11 | RAD ---
CT scan of the abdomen and pelvis without contrast 09/01/2018 CLINICAL HISTORY: Right flank pain. TECHNIQUE: Unenhanced, contiguous, 2 mm axial sections were obtained through the abdomen and pelvis. One or more of the following individualized dose reduction techniques were utilized for this study: 1. Automated exposure control. 2. Adjustment of the mA and/or kV according to patient size. 3. Use of iterative reconstruction technique. FINDINGS: Comparison study is dated 07/19/2016. Images through the lung bases are within normal limits. The liver, spleen, pancreas, and adrenal glands are within normal limits. Nonobstructing renal calculi are seen bilaterally which measure 2 to 3 mm in size. No ureteral calculus is seen. There is no evidence of obstruction of either collecting system. The abdominal aorta tapers normally. Surgical clips are seen within the gallbladder fossa consistent with a cholecystectomy. No free fluid or free air is within the abdomen. There is no evidence of bowel obstruction. The patient is post appendectomy. Images through the pelvis demonstrate the urinary bladder distended with urine. A 7.5 cm adnexal mass which contains fat and areas of calcification is again seen consistent with a dermoid/teratoma. It is unchanged. No free fluid is seen. Minimal S-shaped curvature of the thoracolumbar spine is noted. Degenerative changes are seen involving the lower thoracic and throughout the lumbar spine along with both hips. IMPRESSION: No acute abnormality is seen. Electronically signed by: Devin Kohli MD (09/01/2018 2:08 AM) [facility]
[2018-09-01] MEDS ORDERED: METOCLOPRAMIDE HCL 10 MG/2 ML VIAL. IV ONE (02:30)
[2018-09-01] MEDS ORDERED: ONDANSETRON PF 4 MG/2 ML VIAL. IV ONE (02:30)
[2018-09-01] MEDS ORDERED: fentaNYL PF VIAL 100 MCG/2 ML VIAL IV ONE (03:00)
== END 2018-09-01 03:30 | disposition home or self-care (01) ==
LOC: ER 23:42
DX: R10.13 Epigastric pain (principal); Z90.49 Acquired absence of other specified parts of digestive tract; Z90.89 Acquired absence of other organs; Z98.51 Tubal ligation status; Z87.442 Personal history of urinary calculi
CPT/HCPCS: 36415; 74176; 80053; 80307; 81001; 81025; 83690; 85025; 87086; 96374; 96375; 99285; G0480; J1885; J2765; J3010; J7030

== ENCOUNTER 2018-09-17 00:18 | Emergency (ER) | payer MEDICAID ==
[~2018-09-17] VITALS: Ht 170.2 cm; Wt 99.8 kg
[2018-09-17 00:18] VITALS: BP 147/68
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
[2018-09-17] MEDS ORDERED: METH4TAB2 PO (00:52)
[2018-09-17] MEDS ORDERED: TRAM50TA PO (00:52)
[2018-09-17] MEDS ORDERED: KETOROLAC 30 MG/ML VIAL. IV ONE (01:00)
[2018-09-17] MEDS ORDERED: BACITRACIN TOPICAL OINT 14GM TUBE. TP ONE (01:00)
[2018-09-17] MEDS ORDERED: HYDROcodone/APAP 5/325MG 1 TAB TABLET PO ONE (01:00)
== END 2018-09-17 01:00 | disposition home or self-care (01) ==
LOC: ER 00:18
DX: T24.111A Burn of first degree of right thigh, initial encounter (principal); T31.22 Burns involving 20-29% of body surface with 20-29% third degree burns; T24.102A Burn of first degree of unspecified site of left lower limb, except ankle and foot, initial encounter; T31.0 Burns involving less than 10% of body surface; X11.8XXA Contact with other hot tap-water, initial encounter; Y93.G3 Activity, cooking and baking; Y92.89 Other specified places as the place of occurrence of the external cause; Y99.8 Other external cause status
CPT/HCPCS: 96374; 99284; J1885

== ENCOUNTER 2019-04-06 01:21 | Emergency (ER) | payer MEDICAID ==
[~2019-04-06] VITALS: Ht 170.2 cm; Wt 102.3 kg
[~2019-04-06 01:21] MED LIST changes: +METH4TAB2 PO; +TRAM50TA PO
[2019-04-06] MEDS ORDERED: ONDANSETRON PF 4 MG/2 ML VIAL. IV ONE (02:00)
[2019-04-06] MEDS ORDERED: ORPHENADRINE CITRATE 60 MG/2 ML VIAL. IV ONE (02:00)
[2019-04-06] MEDS ORDERED: fentaNYL PF VIAL 100 MCG/2 ML VIAL IV ONE (02:00)
--- NOTE | 2019-04-06 02:15 | PHYS DOC ---
Past Medical History Past Medical History: Anxiety, Depression, Kidney Stone, Pancreatitis (KENIA SRINIVASAN MARKETING PROFESSIONAL) Past Surgical History: Appendectomy, Cholecystectomy, Tubal ligation, Other Additional Past Surgical Histo: ACL surgery, kidney stones; right scapula, 'TUBES REMOVED', (KENIA SRINIVASAN APRN) Smoking Status: Current Every Day Smoker Alcohol Use: Sober Drug Use: None (KENIA SRINIVASAN APRN) Adult General Chief Complaint Chief Complaint: MECHANICAL FALL HPI HPI Patient is a 38 year old female who presents to the emergency department via EMS with complaints of head, neck, and lower back pain after a fall today. Patient states that she was in her kitchen when she slipped on a rug and fell backwards hitting the back of her head on the floor. She states that she lost consciousness for less than 1 minute but she laid on the floor for approximately 20 minutes waiting for EMS to help her get back up. She reports nausea. Patient denies any vomiting, abdominal pain, numbness, tingling, weakness, palpitations, chest pain, or vision changes. She currently rates her head pain 9 out of 10 on the pain scale, and her lower back pain a 10 out of 10 on the pain scale. She denies any saddle anesthesia or loss of bowel/bladder control. Patient denies any dizziness, syncope, or lightheadedness prior to her fall. (KENIA SRINIVASAN MARKETING PROFESSIONAL) Review of Systems Review of Systems Complete ROS is negative unless otherwise noted in HPI. (KENIA SRINIVASAN APRN) Current Medications Current Medications Current Medications Medications (Trade) Dose Ordered Sig/Sindi Start Time Stop Time Status Last Admin Dose Admin Acetaminophen/ Hydrocodone Bitart (Lortab 5/325) 1 tab 1X ONCE 04/06/19 03:15 04/06/19 03:16 DC 04/06/19 03:30 1 TAB Fentanyl Citrate (Fentanyl 2ml Vial) 50 mcg 1X ONCE 04/06/19 02:00 04/06/19 02:01 DC 04/06/19 02:14 50 MCG Ondansetron HCl (Zofran) 4 mg 1X ONCE 04/06/19 02:00 04/06/19 02:01 DC 04/06/19 02:11 4 MG Orphenadrine Citrate (Norflex) 60 mg 1X ONCE 04/06/19 02:00 04/06/19 02:01 DC 04/06/19 02:12 60 MG (DANISH BECERRIL MD) Current Medications See Above (KENIA SRINIVASAN APRN) Allergies Allergies Allergies Coded Allergies Type Severity Reaction Last Updated Verified No Known Drug Allergies 04/17/13 No (DANISH BECERRIL MD) Physical Exam Physical Exam See Above Constitutional: Well developed, well nourished, no acute distress, non-toxic appearance. [] HENT: Normocephalic, atraumatic, bilateral external ears normal, oropharynx moist, no oral exudates, nose normal; mildly swollen tender area to posterior scalp, no bleeding and no abrasion. [] Eyes: PERRLA, EOMI, conjunctiva normal, no discharge. [] Neck: Normal range of motion, no tenderness, supple, no stridor. [] Cardiovascular:Heart rate regular rhythm Lungs & Thorax: Bilateral breath sounds clear to auscultation [] Skin: Warm, dry, no erythema, no rash. [] Back: No cervical or thoracic bony tenderness to palpation, lumbar tenderness to palpation present with no crepitus or formally, no CVA tenderness. [] Extremities: No cyanosis, ROM intact Neurologic: Alert and oriented X 3, no focal deficits noted. [] Psychologic: Affect normal, judgement normal, mood normal. [] (KENIA SRINIVASAN APRN) Current Patient Data Vital Signs Vital Signs Date Time Temp Pulse Resp B/P (MAP) Pulse Ox O2 Delivery O2 Flow Rate FiO2 04/06/19 03:30 97 Room Air (DANISH BECERRIL MD) EKG EKG [] (KENIA SRINIVASAN APRN) Radiology/Procedures Radiology/Procedures [] (KENIA SRINIVASAN APRN) Radiology/Procedures [facility] [address] [place] [address] IMAGING REPORT Signed PATIENT: PEGGY GASTON LACCOUNT: [id number] : 1980 LOCATION: ER AGE: 38 SEX: F EXAM STATUS: REG ER ORD. PHYSICIAN: KENIA SRINIVASAN APRN REASON: fall after tripping, LOC < 1 minute PROCEDURE: CT HEAD AND CERVICAL SPINE WO INDICATION: Trauma COMPARISON: February 2018 TECHNIQUE: Axial CT images obtained through the head and cervical spine without intravenous contrast. Coronal and sagittal reformats processed of cervical spine. One or more of the following individualized dose reduction techniques were utilized for this examination: 1. Automated exposure control; 2. Adjustment of the mA and/or kV according to patient size; 3. Use of iterative reconstruction technique. FINDINGS: Head: No intracranial hemorrhage. No midline shift. Basal cisterns patents. Ventricles and sulci are within normal limits. No acute osseous abnormality. Orbits and paranasal sinuses unremarkable. Cervical: No definite acute fracture. No dislocation. No evidence of perivertebral hematoma. Degenerative changes of the cervical spine with disc protrusions and osteophyte formation the vertebral body endplates as well as uncovertebral and facet hypertrophy with multilevel central canal and neural foraminal stenosis. IMPRESSION: * No acute intracranial hemorrhage. * No evidence of cervical spine fracture. Electronically signed by: Barry Woods MD (04/06/2019 2:57 AM) [id number] DICTATED and SIGNED BY: BARRY WOODS MD DATE: 04/06/19 0257 (DANISH BECERRIL MD) Course & Med Decision Making Course & Med Decision Making Pertinent Labs and Imaging studies reviewed. (See chart for details) Patient is a 38-year-old female who presented to the emergency room with complaints of head, neck, and low back pain after a fall today. Her C-spine was cleared on physical exam there was no bony or paraspinal cervical tenderness. Therefore the c-collar was taken off as patient reported increased pain from the c-collar. A small swollen tender area was noted to the posterior scalp, there was diffuse lumbar bony tenderness on physical exam. CT head, C-spine, and plain films of lumbar spine are pending. Patient was given 50 g of IV fentanyl, 4 mg of IV Zofran, 60 mg IV Norflex for relief of pain. To Dr. Garrison at approximately 0210, he was advised of the pending radiology reports and the medications given and will follow up on these results and the patient's disposition. [] (KENIA SRINIVASAN APRN) Course & Med Decision Making Phenergan supp provided 25mg MT for nausea, norco po. CT negative for acute process - negative head/negative neck. Spine xrays without acute process. Recommend dc home and follow up with PCP. (DANISH BECERRIL MD) Dragon Disclaimer Dragon Disclaimer This electronic medical record was generated, in whole or in part, using a voice recognition dictation system. (KENIA SRINIVASAN APRN) Departure Departure Impression: Primary Impression: Fall Additional Impression: Musculoskeletal back pain Disposition: HOME, SELF-CARE Condition: STABLE Referrals: NO PCP (PCP) Patient Instructions: Musculoskeletal Pain Additional Instructions: Recommend follow up with PCP as needed No fracture appreciated Tylenol/Motrin as needed for pain Phenergan supp as needed for nausea Problem Qualifiers Primary Impression: Fall Encounter type: initial encounter Qualified Codes: W19.XXXA - Unspecified fall, initial encounter KENIA SRINIVASAN APRN Apr 06, 2019 02:15 DANISH BECERRIL MD Apr 06, 2019 03:32
--- NOTE | 2019-04-06 03:00 | RAD ---
INDICATION: Trauma COMPARISON: February 2018 TECHNIQUE: Axial CT images obtained through the head and cervical spine without intravenous contrast. Coronal and sagittal reformats processed of cervical spine. One or more of the following individualized dose reduction techniques were utilized for this examination: 1. Automated exposure control; 2. Adjustment of the mA and/or kV according to patient size; 3. Use of iterative reconstruction technique. FINDINGS: Head: No intracranial hemorrhage. No midline shift. Basal cisterns patents. Ventricles and sulci are within normal limits. No acute osseous abnormality. Orbits and paranasal sinuses unremarkable. Cervical: No definite acute fracture. No dislocation. No evidence of perivertebral hematoma. Degenerative changes of the cervical spine with disc protrusions and osteophyte formation the vertebral body endplates as well as uncovertebral and facet hypertrophy with multilevel central canal and neural foraminal stenosis. IMPRESSION: * No acute intracranial hemorrhage. * No evidence of cervical spine fracture. Electronically signed by: Blayne Pierce MD (04/06/2019 2:57 AM) [id number]
[2019-04-06] MEDS ORDERED: HYDROcodone/APAP 5/325MG 1 TAB TABLET PO ONE (03:15)
[2019-04-06] MEDS ORDERED: PROMETHAZINE 25 MG SUPP.RECT. PR ONE (04:00)
[2019-04-06 04:19] VITALS: BP 102/59
[2019-04-06] MEDS ORDERED: CLIN150C14 PO (07:42)
[2019-04-06] MEDS ORDERED: HYDR-3164 PO (07:42)
--- NOTE | 2019-04-06 07:47 | RAD ---
Examination: LUMBAR SPINE 2-3V History: Low back pain after trip and fall Comparison/Correlation: None Findings: Total 3 images of the lumbar spine were obtained. Right upper quadrant surgical clips are present. Levoconvex lumbar spine is present. Vertebral body heights and disc spaces are adequate. No fracture or bone destruction. Soft tissues are grossly unremarkable. Alignment is within normal. Impression: Levo convexity. No acute process. No significant degenerative change for the patient's age. Electronically signed by: Luis Felipe De Leon MD (04/06/2019 7:44 AM) [id number]
== END 2019-04-06 04:20 | disposition home or self-care (01) ==
LOC: ER 01:21
DX: M54.5 Low back pain (principal); R51 Headache; M54.2 Cervicalgia; F17.200 Nicotine dependence, unspecified, uncomplicated; Z90.89 Acquired absence of other organs; Z90.49 Acquired absence of other specified parts of digestive tract; Z98.51 Tubal ligation status; Z87.442 Personal history of urinary calculi
CPT/HCPCS: 70450; 72100; 72125; 96374; 96375; 99285; J2360; J2405; J3010; 99284-25

== ENCOUNTER 2019-07-21 01:02 | Emergency (ER) | payer MEDICAID ==
[~2019-07-21] VITALS: Ht 167.6 cm; Wt 95.4 kg
[~2019-07-21 01:02] MED LIST changes: +CLIN150C14 PO
[2019-07-21 01:28] LABS: BASO % 1 % (0-3); EOS # 0.1 x10^3/uL (0.0-0.7); EOS % 2 % (0-3); HEMATOCRIT 38.3 % (36.0-47.0); HEMOGLOBIN 12.9 g/dL (12.0-15.5); LYMPH # 2.5 x10^3/uL (1.0-4.8); LYMPH % 35 % (24-48); MEAN CORPUSCULAR HEMOGLOBIN 30 pg (25-35); MEAN CORPUSCULAR HGB CONC 34 g/dL (31-37); MEAN CORPUSCULAR VOLUME 88 fL (79-100); MONO # 0.4 x10^3/uL (0.0-1.1); MONO % 6 % (0-9); NEUT # 4.1 x10^3/uL (1.8-7.7); NEUT % 58 % (31-73); PLATELET COUNT 274 x10^3/uL (140-400); RED BLOOD COUNT 4.38 x10^6/uL (3.50-5.40); RED CELL DISTRIBUTION WIDTH 16.2 % (11.5-14.5); WHITE BLOOD COUNT 7.2 x10^3/uL (4.0-11.0)
[2019-07-21] MEDS ORDERED: NALOXONE 0.4 MG/ML VIAL. IV ONE (01:30)
[2019-07-21] MEDS ORDERED: IV NORMAL SALINE 1000ML BAG 1,000 ML IV ONE ×2 (01:30→03:00)
[2019-07-21 01:47] LABS: CALCIUM 7.8 mg/dL (8.5-10.1); CREATININE 1.2 mg/dL (0.6-1.0); GFR 49.8; POTASSIUM 3.3 mmol/L (3.5-5.1)
--- NOTE | 2019-07-21 01:49 | PHYS DOC ---
Past Medical History Past Medical History: Anxiety, Depression, Kidney Stone, Pancreatitis, Other Additional Past Medical Histor: INSOMNIA Past Surgical History: Appendectomy, Cholecystectomy, Tubal ligation, Other Additional Past Surgical Histo: ACL surgery, kidney stones; right scapula, 'TUBES REMOVED', Smoking Status: Current Every Day Smoker Additional Information: Alcohol Use: Sober Drug Use: None General Adult EDM: Chief Complaint: OVERDOSE HPI: HPI: Patient is a 38 year old female brought to ER with a chief complaint of altered mental status. EMS state that patient may have had a episode of seizure. Patient does not have a history of seizures. Patient also states that she takes hydrocodone for epigastric abdominal pain. Patient is not sure if she may have taken too many of her hydrocodone's. In the ER patient is alert and oriented x3. Review of Systems: Review of Systems: Constitutional: Denies fever or chills. [] Eyes: Denies change in visual acuity. [] HENT: Denies nasal congestion or sore throat. [] Respiratory: Denies cough or shortness of breath. [] Cardiovascular: Denies chest pain or edema. [] GI: Denies abdominal pain, nausea, vomiting, bloody stools or diarrhea. [] : Denies dysuria. [] Musculoskeletal: Denies back pain or joint pain. [] Integument: Denies rash. [] Neurologic: Denies headache, focal weakness or sensory changes. [] Heart Score: Risk Factors: Risk Factors: DM, Current or recent (<one month) smoker, HTN, HLP, family history of CAD, obesity. Risk Scores: Score 0 - 3: 2.5% MACE over next 6 weeks - Discharge Home Score 4 - 6: 20.3% MACE over next 6 weeks - Admit for Clinical Observation Score 7 - 10: 72.7% MACE over next 6 weeks - Early Invasive Strategies Current Medications: Current Medications Medications (Trade) Dose Ordered Sig/Sindi Start Time Stop Time Status Last Admin Dose Admin Naloxone HCl (Narcan) 0.4 mg 1X ONCE 07/21/19 01:30 07/21/19 01:31 DC Sodium Chloride 1,000 ml @ 1,000 mls/hr 1X ONCE 07/21/19 01:30 07/21/19 02:29 07/21/19 01:30 1,000 MLS/HR Allergies: Allergies: Allergies Coded Allergies Type Severity Reaction Last Updated Verified No Known Drug Allergies 04/17/13 No Physical Exam: PE: Constitutional: Well developed, well nourished, no acute distress, non-toxic appearance. [] HENT: Normocephalic, atraumatic Eyes: EOMI Neck: Normal range of motion, Supple Cardiovascular: Tachycardia Lungs & Thorax: Bilateral breath sounds clear to auscultation [] Abdomen: Bowel sounds normal, soft, no tenderness Extremities: No tenderness, ROM intact Neurologic: Alert and oriented X 3 Current Patient Data: Labs: Laboratory Tests Test 07/21/19 01:15 White Blood Count 7.2 x10^3/uL (4.0-11.0) Red Blood Count 4.38 x10^6/uL (3.50-5.40) Hemoglobin 12.9 g/dL (12.0-15.5) Hematocrit 38.3 % (36.0-47.0) Mean Corpuscular Volume 88 fL (79-100) Mean Corpuscular Hemoglobin 30 pg (25-35) Mean Corpuscular Hemoglobin Concent 34 g/dL (31-37) Red Cell Distribution Width 16.2 % (11.5-14.5) H Platelet Count 274 x10^3/uL (140-400) Neutrophils (%) (Auto) 58 % (31-73) Lymphocytes (%) (Auto) 35 % (24-48) Monocytes (%) (Auto) 6 % (0-9) Eosinophils (%) (Auto) 2 % (0-3) Basophils (%) (Auto) 1 % (0-3) Neutrophils # (Auto) 4.1 x10^3/uL (1.8-7.7) Lymphocytes # (Auto) 2.5 x10^3/uL (1.0-4.8) Monocytes # (Auto) 0.4 x10^3/uL (0.0-1.1) Eosinophils # (Auto) 0.1 x10^3/uL (0.0-0.7) Basophils # (Auto) 0.0 x10^3/uL (0.0-0.2) Laboratory Tests 07/21/19 01:15 Vital Signs: Vital Signs Date Time Temp Pulse Resp B/P (MAP) Pulse Ox O2 Delivery O2 Flow Rate FiO2 07/21/19 01:05 98.8 119 18 133/78 (96) 96 Nasal Cannula 2.0 98.8 EKG: EKG: [] Radiology/Procedures: Radiology/Procedures: [] Course & Med Decision Making: Course & Med Decision Making Pertinent Labs reviewed. (See chart for details) Ordered labs, IV fluids Labs are within normal limits. Patient has received 2 L IV fluids in the ER. On initial examination patient was tachycardic but after 2 L IV fluids, heart rate is within normal limits. Patient can be discharged for outpatient follow-up. Discussed results and plan of care with patient. Patient is instructed to follow up with PCP in one to 2 days. Appropriate discharge instructions given to patient to return to the ED or to seek immediate medical evaluation. Patient is instructed to return to the ED if symptoms worsen or if any concerns. Dragon Disclaimer: Dragon Disclaimer: This electronic medical record was generated, in whole or in part, using a voice recognition dictation system. Departure Departure Impression: Primary Impression: Drug overdose Disposition: HOME, SELF-CARE Condition: IMPROVED Referrals: NO PCP (PCP) Patient Instructions: Alcohol and Drug Addiction, Finding Treatment Additional Instructions: Please follow-up with PCP in 1 to 2 days. Please return to the ED if symptoms worsen or if any concerns. Justicifation of Admission Dx: Justifications for Admission: Justification of Admission Dx: HÉCTOR Patten DO Jul 21, 2019 01:49
[2019-07-21 01:52] LABS: ALBUMIN 3.5 g/dL (3.4-5.0); ALBUMIN/GLOBULIN RATIO 0.9 (1.0-1.7); TOTAL BILIRUBIN 0.2 mg/dL (0.2-1.0); TOTAL PROTEIN 7.5 g/dL (6.4-8.2)
[2019-07-21 02:53] VITALS: BP 130/87
== END 2019-07-21 03:06 | disposition home or self-care (01) ==
LOC: ER 01:02
DX: T40.2X1A Poisoning by other opioids, accidental (unintentional), initial encounter (principal); R41.82 Altered mental status, unspecified; R10.13 Epigastric pain; I47.1 Supraventricular tachycardia; F41.9 Anxiety disorder, unspecified; F32.9 Major depressive disorder, single episode, unspecified; F17.200 Nicotine dependence, unspecified, uncomplicated; K86.1 Other chronic pancreatitis; Z90.89 Acquired absence of other organs; Z90.49 Acquired absence of other specified parts of digestive tract; Z98.51 Tubal ligation status; Z98.890 Other specified postprocedural states; Y92.89 Other specified places as the place of occurrence of the external cause
CPT/HCPCS: 36415; 80053; 85025; 96360; 99285; J7030